=== PATIENT | female | born 1985 | race African-American/Black ===

== ENCOUNTER → 2020-06-26 | Outpatient (CLI) | payer MEDICAID | END | disposition home or self-care (01) | LOC: LAB 15:08 | PROVIDERS: ATTEND Surgery | DX: Z01.818 Encounter for other preprocedural examination (principal); Z11.59 Encounter for screening for other viral diseases; K80.10 Calculus of gallbladder with chronic cholecystitis without obstruction | CPT/HCPCS: U0003-CS ==

== ENCOUNTER 2020-06-29 07:34 | Day surgery (SDC) | payer MEDICAID ==
[~2020-06-29] VITALS: Ht 165.1 cm; Wt 126.0 kg
[~2020-06-29 07:34] MED LIST: BUPIVACAINE-EPI 0.25%-1:200000 MPF 30 ML VIAL. ONE; HYDROmorphone 2 MG/ML VIAL IV PRN; IOHEXOL 300 MG/ML 50 ML VIAL. ONE; LIDOCAINE 1% PF 2 ML VIAL. ID PRN; ONDANSETRON PF 4 MG/2 ML VIAL. IV PRN; SURGICEL HEMOSTAT 4X8 EACH. ONE; ceFAZolin SODIUM 3 GM in IV DEXTROSE 5% 100ML 100 ML IV PRN; fentaNYL PF VIAL 100 MCG/2 ML VIAL IV PRN
[2020-06-29] MEDS ORDERED: ONDANSETRON PF 4 MG/2 ML VIAL. ONE (07:38)
[2020-06-29] MEDS ORDERED: LIDOCAINE 2% PF 5 ML VIAL. ONE (07:38)
[2020-06-29] MEDS ORDERED: DEXAMETHASONE SOD PHOS 4 MG/ML VIAL ONE (07:38)
[2020-06-29] MEDS ORDERED: PROPOFOL 10 MG/ML (20ML) VIAL. IV ONE (07:38)
[2020-06-29] MEDS ORDERED: MIDAZOLAM HCL/PF 2 MG/2 ML VIAL. ONE (07:39)
[2020-06-29] MEDS ORDERED: fentaNYL PF VIAL 100 MCG/2 ML VIAL ONE ×3 (07:39→09:54)
[2020-06-29] MEDS ORDERED: ROCURONIUM 50 MG/5 ML VIAL. ONE (07:39)
[2020-06-29] MEDS ORDERED: SUCCINYLCHOLINE 200 MG/10 ML VIAL. ONE (08:16)
[2020-06-29] MEDS ORDERED: ACETAMINOPHEN 500 MG TABLET PO ONE ×2 (08:17→08:30)
[2020-06-29] MEDS: IV RINGERS,LACTATED 1000ML 1,000 ML IV SCH ×2 (08:45→11:03)
[2020-06-29 09:02] LABS: CALCIUM 8.2 mg/dL (8.5-10.1); CREATININE 0.8 mg/dL (0.6-1.0); GFR 99.4
[2020-06-29 09:08] LABS: ALBUMIN 3.2 g/dL (3.4-5.0); ALBUMIN/GLOBULIN RATIO 0.8 (1.0-1.7); TOTAL BILIRUBIN 0.3 mg/dL (0.2-1.0); TOTAL PROTEIN 7.2 g/dL (6.4-8.2)
[2020-06-29] MEDS ORDERED: NEOSTIGMINE METHYLSULFATE 5 MG/5 ML SYRINGE. ONE (09:10)
[2020-06-29] MEDS ORDERED: GLYCOPYRROLATE 1 MG/5 ML VIAL. ONE (09:10)
[2020-06-29] MEDS ORDERED: SEVOFLURANE 31 TO 60 MINUTES. IH ONE (09:31)
--- NOTE | 2020-06-29 09:37 | PDOC4 ---
Operative Note Operative Note Date: 06/29 at 9:34 AM Preoperative diagnosis: Chronic cholecystitis cholelithiasis Postoperative diagnosis: Same Procedure: Laparoscopic cholecystectomy Surgeon: Odin Specimen: Gallbladder Dictation: Patient is a morbidly obese 35-year-old female with right upper quadrant abdominal pain ultrasound showing multiple gallstones. Procedure of laparoscopic cholecystectomy was explained to the patient detail risk and benefits were discussed with the patient including bleeding infection injury to intra-abdominal contents possibly necessitating further or open operations alternatives to this procedure also discussed with the patient who seemed to understand and gave both verbal and written consent to have the procedure performed. Patient was taken to the operating room placed in the supine position general anesthesia was initiated once patient was sleeping in bed her abdomen was prepped and draped usual sterile fashion using ChloraPrep. Area j ust below the umbilicus was injected quarter percent Marcaine with epinephrine incision was made 11 blade scalpel a varies needle was placed within the abdomen creating pneumoperitoneum once this was complete a 11 mm port was placed and 5 mm camera is placed within the abdomen which was inspected no other abnormalities were noted. A 5 mm port was placed in the epigastrium 5 mm port in the right midabdomen and one in the right lateral abdomen the dome of the gallbladder was grasped retracted cephalad the infundibulum of the gallbladder is grasped tract and laterally exposing the triangle that here tissues of the triangle were taken down with blunt and sharp dissection exposing the cystic duct and cystic artery both were doubly clipped and transected the gallbladder was taken off the liver with hook electrocautery placed in Endo Catch bag removed from the umbilicus the right upper quadrant was irrigated and suctioned dry hemostasis deemed to be appropriate the pneumoperitoneum was reduced all ports were removed the fascial defect at the umbilicus was closed with a [id number] 0 Vicryl suture and the skin was reapproximated all port sites for subcuticular Monocryl Mastisol Steri-Strips and island dressings were applied. Patient was awakened and extubated in the operating room taken to recovery in stable condition all sponge instrument needle counts listed as correct estimated blood loss 10 mL JUANCHO RESENDIZ MD Jun 29, 2020 09:36
--- NOTE | 2020-06-29 09:38 | DISCH ---
DISCHARGE INSTRUCTIONS Condition on Discharge Condition on Discharge: Stable Activity After Discharge Activity Instructions for Disc: Avoid exertion Other activity instructions: No lifting more than 20 pounds for 2 weeks Diet after Discharge Diet after Discharge: Low Fat Wound Incision Care Other wound/incision instructi: May shower in 24 hours Contacting the after DC Call your doctor for: If your condition worsens Follow-Up Follow up with: Dr. Resendiz in 2 weeks JUANCHO RESENDIZ MD Jun 29, 2020 09:38
[2020-06-29] MEDS ORDERED: oxyCODONE/APAP 5/325 1 TAB TABLET PO PRN (10:15)
[2020-06-29] MEDS: PROCHLORPERAZINE 10 MG/2 ML VIAL. IV PRN ×2 (10:16→10:50)
[2020-06-29] MEDS: fentaNYL PF VIAL 100 MCG/2 ML VIAL IV PRN ×2 (10:16→10:34)
[2020-06-29] MEDS ORDERED: MORPHINE SULFATE 2 MG/ML VIAL. ONE (10:23)
[2020-06-29] MEDS: hydrALAZINE 20 MG/ML VIAL. IVP PRN ×2 (10:32→10:50)
[2020-06-29] MEDS: MORPHINE SULFATE 2 MG/ML VIAL. IV PRN ×2 (10:33→10:49)
[2020-06-29] MEDS ORDERED: OXYC1TAB15 PO (11:39)
[2020-06-29] MEDS ORDERED: LABETALOL 20 MG/4 ML DISP.SYRIN. IVP PRN (11:45)
[2020-06-29 11:52] VITALS: BP 176/94
--- NOTE | 2020-07-02 19:07 | PATHOLOGY ---
[facility] Accession Number: [id number] . 01 Material submitted: . gallbladder - GALLBLADDER AND CONTENTS . 01 Clinical history: . Chronic cholecystitis with cholelithiasis . 02 Diagnosis: Gallbladder, laparoscopic cholecystectomy: - Cholelithiasis. - Chronic cholecystitis. ([facility]:pumper hand; 07/02/2020) R 07/02/2020 1602 Local . 02 Comment: There is no evidence of malignancy. ([facility]:pumper hand; 07/02/2020) . 02 Electronically signed: . Vaughn Gomez MD, Pathologist NPI- [id number] . 01 Gross description: . The specimen is received in formalin, labeled "Jayesh Mahoney, gallbladder". Received is an intact gallbladder measuring 9.9 x 2.7 x 2.6 cm in greatest dimensions displaying a pink-dubois to pink-coburn serosal surface. Opening the specimen reveals a velvety, pink-red to light dubois mucosa with a gallbladder wall thickness of 0.1 cm. Calculi are present displaying a light brown to yellow-brown and multifaceted appearance, and no masses or lesions are noted grossly. Field Applications Specialist sections, to include the proximal margin, are submitted in cassette A1. ([facility]; 06/29/2020) QAC/QAC 06/29/2020 1657 Local . 02 Pathologist provided ICD-10: K80.10 . 02 CPT . 128513 Specimen Comment: Report sent to Performed at: 01 [facility] [address] [facility] [address] [place], [place] [id number] MD Carlyle Castillo MD Phone: [phone] Performed at: 02 [facility] [address] [place], [place] [id number] MD Vaughn Gomez MD Phone: [phone]
== END 2020-06-29 13:15 | disposition home or self-care (01) ==
LOC: SURG 07:34 → EDUNIT# 09:00 → SURG 13:15
PROVIDERS: ATTEND Surgery
DX: K80.10 Calculus of gallbladder with chronic cholecystitis without obstruction (principal); K82.8 Other specified diseases of gallbladder; I10 Essential (primary) hypertension; F32.9 Major depressive disorder, single episode, unspecified; F17.210 Nicotine dependence, cigarettes, uncomplicated; E66.9 Obesity, unspecified; Z68.41 Body mass index [BMI] 40.0-44.9, adult; Z98.890 Other specified postprocedural states; Z79.899 Other long term (current) drug therapy
CPT/HCPCS: 36415; 47562; 80053; 81025; 88304; J0330; J0360; J0780; J1100; J2250; J2270; J2405; J2704; J2710; J3010; J3490; J7030; Q9967

== ENCOUNTER → 2022-03-19 | Outpatient (CLI) | payer MEDICAID ==
[~2022-03-19] MED LIST changes: -BUPIVACAINE-EPI 0.25%-1:200000 MPF 30 ML VIAL. ONE; -HYDROmorphone 2 MG/ML VIAL IV PRN; -IOHEXOL 300 MG/ML 50 ML VIAL. ONE; -LIDOCAINE 1% PF 2 ML VIAL. ID PRN; -ONDANSETRON PF 4 MG/2 ML VIAL. IV PRN; +OXYC1TAB15 PO; -SURGICEL HEMOSTAT 4X8 EACH. ONE; -ceFAZolin SODIUM 3 GM in IV DEXTROSE 5% 100ML 100 ML IV PRN; -fentaNYL PF VIAL 100 MCG/2 ML VIAL IV PRN
[2022-03-19 14:51] LABS: ALBUMIN 3.3 g/dL (3.4-5.0); ALBUMIN/GLOBULIN RATIO 0.8 (1.0-1.7); CALCIUM 8.8 mg/dL (8.5-10.1); CREATININE 0.9 mg/dL (0.6-1.0); GFR 85.7; POTASSIUM 4.2 mmol/L (3.5-5.1); TOTAL BILIRUBIN 0.7 mg/dL (0.2-1.0); TOTAL PROTEIN 7.6 g/dL (6.4-8.2)
[2022-03-19 14:55] LABS: CHOLESTEROL/HDL RATIO 4.2
== END ==
LOC: LAB 13:38
PROVIDERS: ATTEND Family Medicine
DX: I10 Essential (primary) hypertension (principal)
CPT/HCPCS: 36415; 80053; 80061